=== PATIENT | female | born 1980 | race Caucasian/White ===

== ENCOUNTER 2017-01-13 21:46 | Emergency (ER) | payer OTHER ==
[~2017-01-13 21:46] MED LIST: ASPIRIN EC81 M1 PO; IBUPROFEN800 M1 PO; OLANZAPINE5 M2 PO; PERCOCET 5-3251 EACH PO; TYLENOL325 M1 PO
--- NOTE | 2017-01-13 23:30 | ED SKIN/ALLERGY COMPLAINT ---
History of Present Illness General Chief Complaint: Allergy Symptoms Stated Complaint: "?ALLEGRIC REACTION,FACIAL SWELLING,RAMOS, FEVER," Source: patient, family, old records Exam Limitations: no limitations Vital Signs & Intake/Output Vital Signs & Intake/Output Vital Signs Date Time Temp Pulse Resp B/P B/P Pulse O2 O2 Flow FiO2 Mean Ox Delivery Rate 01/13 2353 98.0 80 20 132/70 97 Room Air 01/13 2200 98.9 88 22 97 ED Intake and Output 01/14 0000 01/13 1200 Intake Total Output Total Balance Patient 180 lb Weight Allergies Coded Allergies: No Known Drug Allergies (04/29/16) Reconcile Medications Amoxicillin/Potassium Clav (Augmentin 875-125 Tablet) 875 MG-125 MG TABLET 1 TAB PO BID sinusitis Methylprednisolone. (Medrol) 4 MG TAB.DS.PK 1 DP PO AD facial swelling 6 on day 1 then reduce by one tablet daily until gone Olanzapine (Zyprexa) 5 MG TABLET 1 TAB PO QPM ANXIETY (Reported) Triage Note: PER PT UNKNOWN ALLERGEN ALL DAY, FACIAL SWELLING AND PAIN LUMPS ON EARS AND EYES SWOLLEN NO RESP DISTRESS SYMPTOMS SINCE YESTERDAY LMP 12/29 Triage Nurses Notes Reviewed? yes Onset: Abrupt Duration: day(s): (2), constant Timing: recent history Severity: mild, moderate Severity Numbers: 6 Location: face Possible Factors: no cause identified No Modifying Factors: none Associated Symptoms: RHINOREA, CONGESTION : No Patient currently breastfeeds: No HPI: 36-year-old female presents to ER with family for evaluation complaining of left -sided facial swelling, rhinorrhea congestion has been going on for the past 2 days associated left-sided facial pain. She is not taken anything for symptoms. She denies any other rashes to her skin no difficulty swallowing difficulty breathing chest pain nausea vomiting diarrhea. She is not taken anything for her symptoms no sick contacts recent tick or insect bite. There are no modifying factors or associated symptoms otherwise. Pain is nonradiating 6 out of 10. No rashes to her skin. No recent dental work no tooth pain or gingival swelling (MIAH MCCORMACK) Past History Travel History Traveled to [place] past 21 day No Medical History Any Pertinent Medical History? see below for history Neurological: NONE EENT: NONE Cardiovascular: NONE Respiratory: NONE Gastrointestinal: NONE Hepatic: NONE Renal: NONE Musculoskeletal: NONE Psychiatric: depression Endocrine: NONE Surgical History Surgical History: non-contributory Psychosocial History What is your primary language Portuguese Tobacco Use: Never used Family History Hx Contributory? No (MIAH MCCORMACK) Review of Systems Review of Systems Constitutional: Reports: see HPI. All Other Systems: Reviewed and Negative Comments Review of systems: See HPI, All other systems negative. Constitutional, no chills no fever, no malaise HEENT: No visual changes no sore throat congestion, CARDIO: No chest pain Skin: no rashes, no change in skin Respiratory: No dyspnea no cough no sputum GI: No nausea no vomiting, no diarrhea, : No dysuria No hematuria, Muscle skeletal: No joint pain, no joint swelling, no back pain, no neck pain, Neurologic: No numbness no headache Psych: No stress Heme/endocrine: No bruising Immunology: No lymphadenopathy (MIAH MCCORMACK) Physical Exam Physical Exam General Appearance: well developed/nourished, no apparent distress, alert, awake Comments: Well-developed well-nourished patient in no apparent distress. Head/Face: Atraumatic, left-sided maxillary/frontal sinus tenderness, mild left- sided facial swelling no erythema Eyes: PERRL, EOMI, no conjunctival injection. No nystagmus Ear:External auditory canal and Tympanic membranes clear, no erythema, no FB. Nose: atraumatic.Normal inspection: Rhinorrhea congestion Throat: Moist mucous membranes.Pharynx normal. No pharyngeal erythema/exudate seen. No stridor/drooling or assymetry. No swelling or edema. No gingival swelling Neck: Supple, no lymphadenopathy, FROM Back: FROM Cardiovascular: Regular rate and rhythms no murmurs rubs or gallops, Respiratory: Chest nontender.There were no bony deformities, no asymmetry. No respiratory distress. Patient speaking in full complete sentences. Breath sounds clear to auscultation bilaterally: NO W/R/R Extremities: full range of motion Neuro: awake, alert, and oriented to person, place and time. There were no obvious focal neurologic abnormalities. Skin: Warm & dry;No appreciable rash on exposed skin Psych: Mood affect normal, normal memory normal judgment. (MIAH MCCORMACK) Progress Differential Diagnosis: abscess/cellulitis, allergic reaction, anaphylaxis, angioedema, contact dermatitis, drug reaction, shingles, urticaria, SINUSITIS Plan of Care: Current Medications Sig/Eduarda Start time Last Medication Dose Stop Time Status Admin Amoxicillin/ 1,000 MG ONCE ONE 01/13 2345 UNVr Clavulanate Potassium 01/13 2346 (Augmentin) Patient is medicated Benadryl Pepcid prednisone in triage I discussed with the patient at length all of their results. I had an extensive conversation regarding need for close follow up with their primary care physician this week as well as return precautions. I answered all of their questions, they feel comfortable with the plan and follow-up care. I discussed with the patient/family the medications that they will receive. I gave them signs and symptoms that could indicate an adverse reaction. I have advised them to limit their activities until they can see how they respond to the medication. (MIAH MCCORMACK) Departure Departure Time of Disposition: 2342 Disposition: HOME OR SELF CARE Condition: Stable Clinical Impression Primary Impression: Sinusitis Referrals: PATIENT HAS NO PRIMARY CARE DR (PCP/Family) Additional Instructions: Augmentin and Medrol Dosepak as directed these were sent to your pharmacy. Ice packs as needed to your face as needed to help with swelling heating pads to her neck and back. Follow-up with her primary care physician this week, return to ER anytime sooner if any concerns. you have been given todays dose of your antibiotic and steroid, begin this tomorrow Departure Forms: Customer Survey General Discharge Information Prescriptions: Current Visit Scripts Amoxicillin/Potassium Clav (Augmentin 875-125 Tablet) 1 TAB PO BID #14 TAB Methylprednisolone. (Medrol) 1 DP PO AD #1 DP 6 on day 1 then reduce by one tablet daily until gone (MIAH MCCORMACK) PA/LINE SERVICER Co-Sign Statement Statement: ED Attending supervision documentation- [] I saw and evaluated the patient. I have also reviewed all the pertinent lab results and diagnostic results. I agree with the findings and the plan of care as documented in the PA's/LINE SERVICER's documentation. [X] I have reviewed the ED Record and agree with the PA's/LINE SERVICER's documentation. [] Additions or exceptions (if any) to the PAs/LINE SERVICER's note and plan are summarized below: [] (MILAGROS LEAL,JOHN Child)
[2017-01-13] MEDS ORDERED: ZYPREXA5 M1 PO (23:35)
[2017-01-13] MEDS ORDERED: MEDROL4 M2 PO (23:44)
[2017-01-13] MEDS ORDERED: AUGMENTIN 875-1 EACH PO (23:44)
[2017-01-13 23:53] VITALS: BP 132/70
== END 2017-01-13 23:53 ==
LOC: ERH 21:46
DX: J32.9 Chronic sinusitis, unspecified (principal)
CPT/HCPCS: J3490